=== PATIENT | female | born 1950 | race Caucasian/White ===

== ENCOUNTER → 2018-05-14 14:59 | Outpatient (CLI) | payer OTHER, MEDICARE, SELFPAY ==
--- NOTE | 2018-05-14 | DI.MG.S_ITS ---
BILATERAL DIGITAL SCREENING MAMMOGRAM 3D/2D WITH CAD: 05/14/2018 CLINICAL: Routine screening. Family history of breast cancer. Comparison is made to exams dated: 05/12/2017 mammogram, 04/01/2016 mammogram, and 03/29/2015 mammogram - [facility]. The tissue of both breasts is heterogeneously dense. This may lower the sensitivity of mammography. Current study was also evaluated with a Computer Aided Detection (CAD) system. No significant masses, calcifications, or other findings are seen in either breast. There has been no significant interval change. IMPRESSION: NEGATIVE There is no mammographic evidence of malignancy. A 1 year screening mammogram is recommended. This exam was interpreted at Station ID: [id number]. NOTE: For mammograms, a report in lay terms will be sent to the patient. Approximately 15% of breast malignancies will not be visualized mammographically. In the management of a palpable breast mass, a negative mammogram must not discourage biopsy of a clinically suspicious lesion. Electronically Signed By: Arvin james/fletcher:05/15/2018 13:27:56 letter sent: Normal Exam ACR BI-RADS Category 1: Negative 3341F
== END ==
PROVIDERS: PCP Internal Medicine; Visit Provider Family Medicine
DX: Z12.31 Encounter for screening mammogram for malignant neoplasm of breast (principal); Z80.3 Family history of malignant neoplasm of breast
CPT/HCPCS: 77063; 77067

== ENCOUNTER → 2018-05-15 06:54 | Outpatient (CLI) | payer OTHER, MEDICARE, SELFPAY ==
[2018-05-15 08:05] LABS: Cholesterol 228 mg/dL (140-199); HDL Cholesterol 95 mg/dL (40-60); LDL Cholesterol Calculated 117 mg/dL (<100); Triglycerides 80 mg/dL (35-150)
[2018-05-15 08:38] LABS: Thyroid Stimulating Hormone 0.04 uIU/mL (0.47-4.68)
== END ==
PROVIDERS: PCP Internal Medicine; Visit Provider Internal Medicine
DX: E78.5 Hyperlipidemia, unspecified (principal); E03.9 Hypothyroidism, unspecified
CPT/HCPCS: 36415; 80061; 84443

== ENCOUNTER → 2018-06-03 13:28 | Outpatient (CLI) | payer OTHER, MEDICARE, SELFPAY ==
--- NOTE | 2018-06-03 13:31 | DI.RAD.S_ITS ---
This blank DEXA report has been sent in error by the PACS system. The correct and complete report will be forthcoming in 1-2 days. Thank you for your patience and understanding. Note: The L3 vertebral body is sclerotic, seen also on CT scanning from 06/13/17 and 11/26/17, of uncertain etiology. Bone scan may be warranted to identify any added osseous abnormalities elsewhere. No compression fracture is associated with this finding. Dr. Ware will be called with this finding today. Dictated by: Nino Garcia M.D. on 06/03/2018 at 14:36 Approved by: Nino Garcia M.D. on 06/03/2018 at 14:41
== END ==
PROVIDERS: PCP Family Medicine; Visit Provider Internal Medicine
DX: M85.852 Other specified disorders of bone density and structure, left thigh (principal)
CPT/HCPCS: 77080

== ENCOUNTER → 2018-07-10 07:35 | Outpatient (CLI) | payer OTHER, MEDICARE, SELFPAY ==
--- NOTE | 2018-07-10 07:38 | DI.NM.S_ITS ---
PROCEDURE: NM BONE SCAN WHOLE BODY RADIOPHARMACEUTICAL: 20.5 mCi Tc-99m MDP IV. INDICATIONS: abnormal L3 vertebral body sclerosis TECHNIQUE: Delayed whole-body scintigrams were obtained approximately 3-4 hours after intravenous injection of radiotracer. Anterior and posterior views were acquired from vertex to feet. Additional left and right oblique views of the lumbosacral spine were obtained. COMPARISON: [facility], MR, BRAIN WITHOUT CONTRAST, 08/08/2008, 15:43. [facility], CT, ABDOMEN/PELVIS WITH CONTRAST, 11/26/2017, 13:49. [facility], CT, ABDOMEN/PELVIS WITH CONTRAST, 06/13/2017, 8:50. [facility], CR, L-SPINE 2-3 VIEWS, 06/03/2008, 10:33. [facility], CR, XR DEXA AXIAL SKELETON, 06/03/2018, 14:11. FINDINGS: Planar imaging over the axial and appendicular skeleton shows mild asymmetric increased isotope deposition along the right maxillary sinus region when compared to the left, and degenerative change at each acromioclavicular joint slightly greater on the left than the right. The abnormality is current clinical concern is located at the L3 vertebral body where generalized increased isotope uptake is present, slightly greater on the left than the right, and seen on both the AP and PA image acquisitions. The findings do not cross the intervening disc spaces above and below. More inferiorly there is asymmetric uptake at the hindfoot on the left, degenerative in appearance and position. Isotope uptake and excretion through the urinary tract appears normal and symmetric. IMPRESSION: The L3 vertebra shows generalized increased isotope deposition similar to the appearance noted during DEXA bone density on the study 06/03/18. This information was conveyed to the ordering health care provider at that time, and given the abnormality present on the current examination proceeding to MR of the LS spine without and with contrast is recommended. On review of a distant past 06/03/08 lumbosacral spine plain film series there is a finding of possible vertically oriented striations within the L3 vertebral body, which can be associated with presence of a vertebral body marrow space hemangioma. An atypical hemangioma or localize Paget's disease conceivably could explain the appearance, and trauma is not likely the cause given the absence of vertebral height reduction. Considering differences in technique the vertebral body sclerosis at L3 has not appreciably changed from the CT scan dated 06/13/17 when this abnormality was first identified. However, considering the constellation of findings MR scanning with contrast is definitely recommended, and vertebral body marrow space biopsy may become necessary. Note: These findings were called and discussed with the medical billing coordinator for the ordering health care provider who will convey this information directly to Dr. Bui. Dictated by: Nino Garcia M.D. on 07/10/2018 at 13:15 Approved by: Nino Garcia M.D. on 07/10/2018 at 13:36
== END ==
PROVIDERS: PCP Family Medicine; Visit Provider Internal Medicine
DX: M89.9 Disorder of bone, unspecified (principal)
CPT/HCPCS: 78306; A9503

== ENCOUNTER → 2018-09-21 13:35 | Outpatient (CLI) | payer OTHER, MEDICARE, SELFPAY ==
[2018-09-21 15:32] LABS: BUN Creatinine Ratio 37.1 (6-22); Blood Urea Nitrogen 26 mg/dL (7-17); Estimated Glomerular Filt Rate > 60.0 mL/min (>60)
--- NOTE | 2018-09-21 17:36 | DI.MRI.S_ITS ---
PROCEDURE: MR LUMBAR SPINE WO/W CON INDICATIONS: RADIODENSE BONE LESION TECHNIQUE: Noncontrast sagittal T1 spin echo and T2 fast spin echo, sagittal STIR, axial T1 and T2 fast spin echo through the lumbar spine. In cases with scoliosis, additional coronal T2 fast spin echo may be performed. After the administration of contrast, sagittal and axial T1 spin echo with fat saturation through the lumbar spine. COMPARISON: [facility], CR, L-SPINE 2-3 VIEWS, 06/03/2008, 10:33. [facility], CT, ABDOMEN/PELVIS WITH CONTRAST, 06/13/2017, 8:50. [facility], CT, ABDOMEN/PELVIS WITH CONTRAST, 11/26/2017, 13:49. [facility], NM, NM BONE SCAN WHOLE BODY, 07/10/2018, 10:46. FINDINGS: Image quality: Excellent. Alignment and curvature: There is trace anterolisthesis of L4 on L5. Marrow: Marrow is of normal overall signal. However, is noted at the L3 vertebral body demonstrates decreased T1 and T2 signal. There is no appreciable enhancement. No acute vertebral body compression fractures. There is questionable, minimal enhancement. Spinal cord: Conus medullaris terminates at the L1 level. Visualized spinal cord demonstrates normal signal, without suspicious enhancement. Paraspinous soft tissues: No paravertebral masses. Discs: Moderate desiccation is present at L3-4, L4-5, mild remainder of the lumbar spine. L1-L2: No disc bulge, spinal stenosis or foraminal narrowing. L2-L3: Mild disc bulge with minimal mild spinal stenosis. Minimal epidural lipomatosis. No foraminal narrowing. Minimal to mild facet and ligamentum flavum hypertrophy. L3-L4: Mild disc bulge with mild to moderate spinal stenosis. Minimal epidural lipomatosis is present. There is moderate bilateral foraminal narrowing, left greater than right with facet and ligamentum flavum hypertrophy. L4-L5: Mild disc bulge without spinal stenosis. Minimal to mild bilateral foraminal narrowing with facet and ligamentum flavum hypertrophy. L5-S1: Mild disc bulge including a small right foraminal component. No spinal stenosis. No foraminal narrowing. Mild facet hypertrophy. IMPRESSION: 1. Multilevel degenerative changes as above most notable at L3-4. 2. Decreased marrow signal within the L3 vertebral body on T1 and T2. There is questionable, minimal enhancement. Correlation with prior exams, overall appearance raises suspicion for Paget's disease. Less likely differential would include an infiltrative process such as lymphoma. Dictated by: Rachel Jimenez M.D. on 09/22/2018 at 11:50 Approved by: Rachel Jimenez M.D. on 09/22/2018 at 13:24
== END ==
PROVIDERS: PCP Family Medicine; Visit Provider Orthopaedic Surgery
DX: Z01.818 Encounter for other preprocedural examination (principal); M47.816 Spondylosis without myelopathy or radiculopathy, lumbar region; M89.9 Disorder of bone, unspecified
CPT/HCPCS: 36415; 72158; 82565; 84520; A9579

== ENCOUNTER → 2018-10-15 13:33 | Outpatient (CLI) | payer OTHER, MEDICARE, SELFPAY ==
[2018-10-15 16:38] LABS: Alkaline Phosphatase 95 U/L (38-126)
== END ==
PROVIDERS: Family Provider Family Medicine; PCP Family Medicine; Visit Provider Orthopaedic Surgery
DX: M89.9 Disorder of bone, unspecified (principal)
CPT/HCPCS: 36415; 84075

== ENCOUNTER → 2019-05-27 15:02 | Outpatient (CLI) | payer MEDICARE, OTHER, SELFPAY ==
--- NOTE | 2019-05-27 | DI.MG.S_ITS ---
BILATERAL DIGITAL SCREENING MAMMOGRAM 3D/2D WITH CAD: 05/27/2019 CLINICAL: Routine screening. Family history of breast cancer. Comparison is made to exams dated: 05/14/2018 mammogram, 05/12/2017 mammogram, and 04/01/2016 mammogram - [facility]. The tissue of both breasts is heterogeneously dense. This may lower the sensitivity of mammography. Current study was also evaluated with a Computer Aided Detection (CAD) system. No significant masses, calcifications, or other findings are seen in either breast. There has been no significant interval change. IMPRESSION: NEGATIVE There is no mammographic evidence of malignancy. A 1 year screening mammogram is recommended. This exam was interpreted at Station ID: [id number]. NOTE: For mammograms, a report in lay terms will be sent to the patient. Approximately 15% of breast malignancies will not be visualized mammographically. In the management of a palpable breast mass, a negative mammogram must not discourage biopsy of a clinically suspicious lesion. Electronically Signed By: Tobias restrepo/fletcher:05/27/2019 16:30:22 letter sent: Normal Exam ACR BI-RADS Category 1: Negative 3341F
== END ==
PROVIDERS: Family Provider Family Medicine; PCP Family Medicine; Visit Provider Family Medicine
DX: Z12.31 Encounter for screening mammogram for malignant neoplasm of breast (principal); Z80.3 Family history of malignant neoplasm of breast
CPT/HCPCS: 77063; 77067

== ENCOUNTER → 2019-05-31 07:34 | Outpatient (CLI) | payer MEDICARE, OTHER, SELFPAY ==
[2019-05-31 08:12] LABS: Add Manual Diff / Slide Review NO; Basophils Absolute Auto 100 /uL (0-100); Basophils Percent Auto 1.4 % (0-2); Eosinophils Absolute Auto 200 /uL (0-450); Eosinophils Percent Auto 2.8 % (2-4); Hematocrit 39.2 % (36-46); Hemoglobin 13.4 g/dL (12.0-16.0); Lymphocytes Absolute Auto 2200 /uL (1100-4500); Lymphocytes Percent Auto 33.5 % (25-40); Mean Corpuscular HGB Conc 34.2 % (30-36); Mean Corpuscular Hemoglobin 30.8 PG (26-34); Mean Corpuscular Volume 90.1 fL (80-100); Monocytes Absolute Auto 600 /uL (0-900); Monocytes Percent Auto 8.8 % (3-14); Neutrophils Absolute Auto 3500 /uL (1500-7000); Neutrophils Percent Auto 53.5 % (50-75); Platelet Count 351 X10^3/uL (150-400); Red Blood Cell Count 4.36 X10^6/uL (4.0-5.2); Red Cell Distribution Width 13.6 % (11.6-14.8); White Blood Cell Count 6.5 X10^3/uL (4.5-11.0)
[2019-05-31 08:43] LABS: Alanine Aminotransferase 33 IU/L (9-52); Albumin 4.5 g/dL (3.5-5.0); Albumin Globulin Ratio 1.5 (1.0-2.8); Alkaline Phosphatase 99 U/L (38-126); Aspartate Aminotransferase 23 IU/L (14-36); BUN Creatinine Ratio 31.4 (6-22); Bilirubin Total 0.5 mg/dL (0.2-1.3); Blood Urea Nitrogen 22 mg/dL (7-17); Calcium 9.6 mg/dL (8.4-10.2); Carbon Dioxide 30 mmol/L (22-32); Chloride 102 mmol/L (98-107); Cholesterol 232 mg/dL (140-199); Estimated Glomerular Filt Rate > 60.0 mL/min (>60); Glucose 99 mg/dL (80-110); HDL Cholesterol 92 mg/dL (40-60); HEMOLYSIS < 15 (0-50); LDL Cholesterol Calculated 120 mg/dL (<100); Potassium 4.2 mmol/L (3.4-5.1); Sodium 141 mmol/L (137-145); Total Protein 7.5 g/dL (6.3-8.2); Triglycerides 102 mg/dL (35-150)
[2019-05-31 09:22] LABS: Thyroid Stimulating Hormone 1.01 uIU/mL (0.47-4.68)
== END ==
PROVIDERS: PCP Family Medicine; Visit Provider Family Medicine
DX: E03.9 Hypothyroidism, unspecified (principal); E78.5 Hyperlipidemia, unspecified; I10 Essential (primary) hypertension
CPT/HCPCS: 36415; 80053; 80061; 84443; 85025

== ENCOUNTER → 2019-06-23 06:52 | Outpatient (CLI) | payer MEDICARE, OTHER, SELFPAY ==
--- NOTE | 2019-06-23 06:54 | DI.ECHO.S_ITS ---
[facility]---------+ [facility] +---------+ : : [address] : [place] : : : : [id number] : : : : Phone: [phone]+ Echocardiogram Report + + :Name: TEVIN ALBARRAN Study Date: 06/23/2019 Height: 67 in : :[facility] Exam Location: [place] Weight: 156 lb : : Gender: Female BSA: 1.8 m2 : :: 1950 Age: 69 yrs BP: 142/74 mmHg: :Reason For Study: PVCs : : Performed By: Laci Thompson : :Referring: LE ALMODOVAR : + + Interpretation Summary Normal sinus rhythm with frequent PVC's. Normal LV size, wall thickness, wall motion and LV systolic function. EF is 60-65%. Mild LA enlargement; otherwise normal chamber sizes. No significant valvular abnormalities. No prior study available for comparison. Procedure: A two-dimensional transthoracic echocardiogram with color flow and Doppler was performed. The study quality was technically adequate. There is no prior echocardiogram noted for this patient. The patient was in normal sinus rhythm during the exam. The patient had frequent PVCs during the exam. Left Ventricle: The left ventricle is normal in size. There is normal left ventricular wall thickness. The ejection fraction is estimated to be 60-65%. There are no focal wall motion abnormalities. Right Ventricle: The right ventricle is normal in size and function. Atria: The left atrium is mildly dilated. Right atrial size is normal. The interatrial septum is intact with no evidence for an atrial septal defect. Mitral Valve: The mitral valve is normal in structure and function. There is trace mitral regurgitation. Aortic Valve: The aortic valve is trileaflet. The aortic valve opens well. No aortic regurgitation is present. Tricuspid Valve: The tricuspid valve is normal in structure and function. No tricuspid regurgitation. Pulmonary artery pressures cannot be estimated because of the lack of a measurable TR jet velocity. Pulmonic Valve: The pulmonic valve is normal in structure and function. There is trace pulmonic regurgitation. Great Vessels: The aortic root is normal size. The dimensions of the ascending aorta are normal. The pulmonary artery is normal size. The IVC is of normal diameter and collapses greater than 50% with a sniff. This suggests a low right atrial pressure of 3 mm Hg. Pericardium/ Pleura There is no pericardial effusion. There is no pleural effusion. MMode/2D Measurements & Calculations LVIDd: 4.8 cm LVOT diam: 2.2 cm LVIDs: 3.4 cm Ao root diam: 3.3 cm FS: 28.6 % Aortic Jxn: 2.5 cm EPSS: 0.70 cm asc Aorta Diam: 3.1 cm IVSd: 0.93 cm Ao Arch Diam (Prox Trans): 3.0 cm LVPWd: 1.0 cm LV ruiz. diameter/BSA (cm/m^2): 2.6 LV sys. diameter/BSA (cm/m^2): 1.9 LA dimension: 4.0 cm RA long axis: 5.2 cm LA A2 area: 20.7 cm2 RA area: 14.5 cm2 LA A4 area: 21.9 cm2 RA vol: 34.7 ml LA length (vol): 5.6 cm RA : 19.1 ml/m2 LA vol: 68.8 ml IVC diam: 1.5 cm LA vol index: 37.8 ml/m2 Doppler Measurements & Calculations Ao V2 max: 122.7 cm/sec LVOT Max Hiram: 98.4 cm/sec Ao V2 mean: 89.8 cm/sec LV V1 max P.9 mmHg Ao max P.0 mmHg LV V1 VTI: 25.4 cm Ao mean P.5 mmHg VALERIE(I,D): 3.4 cm2 Ao V2 VTI: 28.5 cm VALERIE(V,D): 3.1 cm2 sev ratio: 0.89 VALERIE indexed to BSA (cm^2/m^2): 1.9 MV E max hiram: 62.6 cm/sec PA V2 max: 83.6 cm/sec MV A max hiram: 55.2 cm/sec PA V2 mean: 65.8 cm/sec MV E/A: 1.1 PA mean P.8 mmHg Med Peak E' Hiram: 2.9 cm/sec PA pr(Accel): 15.8 mmHg E/E' med: 21.6 PA Accel Time: 0.13 sec Lat Peak E' Hiram: 6.3 cm/sec E/E' lat: 9.9 E/e' average: 15.8 MV dec time: 0.20 sec SV(LVOT): 97.4 ml Electronically signed by: Radha Browne M.D. on Reading Physician:06/24/2019 04:48 AM
== END ==
PROVIDERS: PCP Family Medicine; Visit Provider Family Medicine
DX: I49.3 Ventricular premature depolarization (principal)
CPT/HCPCS: 93306

== ENCOUNTER → 2019-06-24 09:23 | Outpatient (CLI) | payer MEDICARE, OTHER, SELFPAY ==
--- NOTE | 2019-07-02 08:28 | P.HOLT.S_ITS ---
Director Environmental Report Referral & Results Date Patient Seen: 06/24/19 Requesting provider: Bogdan Galindo Indication: PVCs Duration of monitoring (days): 3 Diary information: There were 11 patient triggered events and 10 patient diary entries These events were associated with sinus rhythm, PVCs, ventricular bigeminy and ventricular trigeminy Data: Minimum heart rate identified was 42 beats per minute at 01:49 on 06/25/2019 Maximum heart rate was 111 beats per minute at 14:06 on 06/26/2019 Less than 1% of identified beats were supraventricular ectopic in origin Approximately 11% of identified beats were ventricular ectopic in origin including an 18 minutes run of ventricular trigeminy and a 1 minutes 42nd run of ventricular bigeminy There also possibly some episodes of an atrial tachycardia/supraventricular tachycardia longest of which was 13 beats Impression: Significant burden of ventricular ectopic depolarizations including runs of ventricular trigeminy and bigeminy as above. The seem to be symptomatic
== END ==
PROVIDERS: PCP Family Medicine; Visit Provider Family Medicine
DX: I49.3 Ventricular premature depolarization (principal)
CPT/HCPCS: 0296T; 0298T

== ENCOUNTER → 2020-06-06 07:07 | Outpatient (CLI) | payer MEDICARE, OTHER, SELFPAY ==
[2020-06-06 08:41] LABS: Add Manual Diff / Slide Review NO; Basophils Absolute Auto 100 /uL (0-100); Basophils Percent Auto 1.1 % (0-2); Eosinophils Absolute Auto 200 /uL (0-450); Eosinophils Percent Auto 2.7 % (2-4); Hematocrit 41.3 % (36-46); Hemoglobin 13.8 g/dL (12.0-16.0); Lymphocytes Absolute Auto 2200 /uL (1100-4500); Lymphocytes Percent Auto 32.2 % (25-40); Mean Corpuscular HGB Conc 33.3 % (30-36); Mean Corpuscular Hemoglobin 30.4 PG (26-34); Mean Corpuscular Volume 91.2 fL (80-100); Monocytes Absolute Auto 500 /uL (0-900); Monocytes Percent Auto 7.1 % (3-14); Neutrophils Absolute Auto 3900 /uL (1500-7000); Neutrophils Percent Auto 56.9 % (50-75); Platelet Count 305 X10^3/uL (150-400); Red Blood Cell Count 4.53 X10^6/uL (4.0-5.2); Red Cell Distribution Width 13.6 % (11.6-14.8); White Blood Cell Count 6.8 X10^3/uL (4.5-11.0)
[2020-06-06 08:56] LABS: Alanine Aminotransferase 30 IU/L (<35); Albumin 4.6 g/dL (3.5-5.0); Albumin Globulin Ratio 1.5 (1.0-2.8); Alkaline Phosphatase 127 U/L (38-126); Aspartate Aminotransferase 24 IU/L (14-36); BUN Creatinine Ratio 20.3 (6-22); Bilirubin Total 0.5 mg/dL (0.2-1.3); Blood Urea Nitrogen 15 mg/dL (7-17); Calcium 9.7 mg/dL (8.4-10.2); Carbon Dioxide 28 mmol/L (22-32); Chloride 105 mmol/L (98-107); Cholesterol 261 mg/dL (140-199); Estimated Glomerular Filt Rate > 60.0 mL/min (>60); Glucose 107 mg/dL (80-110); HDL Cholesterol 81 mg/dL (40-60); HEMOLYSIS < 15 (0-50); LDL Cholesterol Calculated 143 mg/dL (<100); Potassium 4.7 mmol/L (3.4-5.1); Sodium 140 mmol/L (137-145); Total Protein 7.6 g/dL (6.3-8.2); Triglycerides 185 mg/dL (35-150)
== END ==
PROVIDERS: PCP Family Medicine; Referring Provider Family Medicine; Visit Provider Family Medicine
DX: E03.9 Hypothyroidism, unspecified (principal); E78.5 Hyperlipidemia, unspecified; I10 Essential (primary) hypertension
CPT/HCPCS: 80053; 80061; 84443; 85025

== ENCOUNTER → 2020-06-09 08:03 | Outpatient (CLI) | payer MEDICARE, OTHER, SELFPAY ==
--- NOTE | 2020-06-09 | DI.MG.S_ITS ---
BILATERAL DIGITAL SCREENING MAMMOGRAM 3D/2D WITH CAD: 06/09/2020 CLINICAL: Family history of breast cancer. Comparison is made to exams dated: 05/27/2019 mammogram, 05/14/2018 mammogram, and 05/12/2017 mammogram - [facility]. The tissue of both breasts is heterogeneously dense. This may lower the sensitivity of mammography. Current study was also evaluated with a Computer Aided Detection (CAD) system. No significant masses, calcifications, or other findings are seen in either breast. There has been no significant interval change. IMPRESSION: NEGATIVE There is no mammographic evidence of malignancy. A 1 year screening mammogram is recommended. This exam was interpreted at Station ID: [id number]. NOTE: For mammograms, a report in lay terms will be sent to the patient. Approximately 15% of breast malignancies will not be visualized mammographically. In the management of a palpable breast mass, a negative mammogram must not discourage biopsy of a clinically suspicious lesion. Electronically Signed By: Bogdan Leo M.D., jr/fletcher:06/09/2020 09:37:00 letter sent: Normal Exam ACR BI-RADS Category 1: Negative 3341F
== END ==
PROVIDERS: PCP Family Medicine; Referring Provider Family Medicine; Visit Provider Family Medicine
DX: Z12.31 Encounter for screening mammogram for malignant neoplasm of breast (principal); Z80.3 Family history of malignant neoplasm of breast
CPT/HCPCS: 77063; 77067

== ENCOUNTER → 2020-06-16 07:04 | Outpatient (CLI) | payer MEDICARE, OTHER, SELFPAY ==
--- NOTE | 2020-06-16 07:09 | DI.MRI.S_ITS ---
PROCEDURE: MR CERVICAL SPINE WO CON INDICATIONS: c6 riduclopathy TECHNIQUE: Noncontrast sagittal T1 spin echo and T2 fast spin echo, sagittal STIR, foraminal oblique sagittal T2 fast spin echo, and axial gradient echo or T2 fast spin echo through the cervical spine. COMPARISON: None. FINDINGS: Image quality: Excellent. Alignment and Curvature: There is loss of normal cervical lordosis. There is mild grade 1 retrolisthesis of C3 on C4 and C5 on C6. Mild grade 1 anterolisthesis of C4 on C5. Bone Marrow: Marrow demonstrates normal overall signal. There is mild reactive signal within the endplates adjacent to the C2-C3, C3-C4, C4-C5, C5-C6, and C6-C7 intervertebral discs. Spinal Cord: Visualized spinal cord has normal size and signal. No cerebellar tonsillar herniation. Paraspinous Soft Tissues: No paravertebral masses. Prevertebral soft tissues are normal in thickness. C2-C3: Moderate disc desiccation. Mild diffuse disc bulge. Mild facet and uncovertebral hypertrophy. Mild canal stenosis. Mild bilateral foraminal stenosis. C3-C4: Moderate disc desiccation. Mild diffuse disc bulge. Mild facet and uncovertebral hypertrophy bilaterally. Mild canal stenosis. Mild right greater than left foraminal stenosis. C4-C5: Moderate disc desiccation. Mild diffuse disc bulge. Mild facet and uncovertebral hypertrophy bilaterally. Mild canal stenosis. Mild bilateral foraminal stenosis. C5-C6: Moderate disc height loss and desiccation. Moderate diffuse disc bulge with small superimposed left far lateral protrusion. Moderate facet and uncovertebral hypertrophy bilaterally. There is moderate to severe canal stenosis. Moderate right and severe left foraminal stenosis. Left C6 nerve root compression. C6-C7: Moderate disc height loss and desiccation. Mild diffuse disc bulge. Mild facet and uncovertebral hypertrophy. Mild canal stenosis. Severe bilateral foraminal stenosis. Bilateral C7 nerve root compression. C7-T1: Mild disc desiccation. No significant canal, or foraminal stenosis. IMPRESSION: 1. Multilevel degenerative disc and facet disease, as well as uncovertebral and facet hypertrophy. 2. Multilevel canal stenosis, worst at C5-C6, where there is moderate to severe canal stenosis. 3. Multilevel foraminal stenosis, worst at C5-C6 and C6-C7 where there is associated intraforaminal nerve root compression. Recommend correlation with clinical symptoms to ascertain relevance of this finding. Dictated by: Sheryl Hanson M.D. on 06/16/2020 at 8:33 Approved by: Sheryl Hanson M.D. on 06/16/2020 at 8:58
== END ==
PROVIDERS: PCP Family Medicine; Referring Provider Family Medicine; Visit Provider Family Medicine
DX: M50.11 Cervical disc disorder with radiculopathy, high cervical region (principal); M48.02 Spinal stenosis, cervical region
CPT/HCPCS: 72141

== ENCOUNTER → 2020-07-04 09:56 | Outpatient (CLI) | payer MEDICARE, OTHER, SELFPAY ==
--- NOTE | 2020-07-04 09:58 | DI.RAD.S_ITS ---
PROCEDURE: XR CERVICAL SPINE 4V OR 5V INDICATIONS: Cervical radiculopathy TECHNIQUE: 5 views of the cervical spine acquired. COMPARISON: None. FINDINGS: Bones: No fracture. Multilevel degenerative endplate sclerosis and spurring. Diffuse facet arthropathy. Moderate narrowing of the C5-C6 disc space. On the left, mild to moderate C5-C6 bony foraminal narrowing. On the right, moderate C5-6 disc bony foraminal narrowing. Soft tissues: No prevertebral soft tissue swelling. IMPRESSION: Cervical spondylosis most pronounced at C5-C6 where there is [id number] bilateral foraminal bony stenosis. Diffuse facet arthropathy Dictated by: Nathaniel Werner M.D. on 07/04/2020 at 11:00 Approved by: Nathaniel Werner M.D. on 07/04/2020 at 11:02
== END ==
PROVIDERS: PCP Family Medicine; Referring Provider Family Medicine; Visit Provider Physical Medicine & Rehabilitation
DX: M47.22 Other spondylosis with radiculopathy, cervical region (principal); M48.02 Spinal stenosis, cervical region
CPT/HCPCS: 72050

== ENCOUNTER → 2020-09-18 10:28 | Outpatient (CLI) | payer MEDICARE, OTHER, SELFPAY ==
[2020-09-18 12:22] LABS: COVID19 -Nasal RAPID Negative (Negative)
== END ==
PROVIDERS: PCP Family Medicine; Visit Provider Physical Medicine & Rehabilitation
DX: Z11.59 Encounter for screening for other viral diseases (principal)
CPT/HCPCS: 87635; C9803

== ENCOUNTER 2020-09-19 08:03 | Outpatient (CLI) | payer MEDICARE, OTHER, SELFPAY ==
[2020-09-19] VITALS (8 sets, daily range): BP systolic 125–174; BP diastolic 62–74; PULSE 47–56; RESP 14–22; TEMP 36.1; O2SAT 99–100
--- NOTE | 2020-09-19 08:04 | DI.RAD.S_ITS ---
PROCEDURE: PAIN C/T INTERLAMINAR INJECT INDICATIONS: SPINAL STENOSIS COMPARISON: None. FINDINGS: Fluoroscopic spot filming was performed to verify placement of spinal needles at the C6-C7 posterior midline level, as labeled on the films. Appropriate location(s) of the needle tip(s) was confirmed by injection of iodinated contrast. IMPRESSION: Successful needle tip localization for dorsal C6-C7 interlaminar epidural steroid injection. Dictated by: Nino Garcia M.D. on 09/19/2020 at 10:11 Approved by: Nino Garcia M.D. on 09/19/2020 at 10:11
[2020-09-19] MEDS: fentaNYL 100 MCG/2 ML INJ 50 MCG IV (09:00)
[2020-09-19] MEDS: MIDAZOLAM 5 MG/5 ML VIAL IV (09:00)
--- NOTE | 2020-09-19 09:21 | P.PCN_ITS ---
Date/Time/Diagnoses Date of procedure: 09/19/20 Time of procedure: 09:22 Pre-procedure diagnosis: 1. CERVICAL STENOSIS, 2. CERVICAL HNP WITH UPPER EXTREMITY RADICULAR FEATURES Post-procedure diagnosis: same Procedure Notes Procedure: 1. FLUORSCOPICALLY GUIDED CONTRAST CONTROLLED INTERLAMINAR EPIDURAL STEROID INJECTION - C6/7 TL FIORELLA Indications: Tori is referred by Dr. Galindo for treatment of Cervical HNP with Upper Extremity Paresthesias. Physician: Kamaljit Sandoval Total Fluoroscopy time (seconds): 36 Total sedation minutes: 19 Complications: none Procedure in detail & Post-procedure care: FINDINGS Cervical Stenosis due to disc deterioration and nerve root irritation and nerve root irritation DESCRIPTION OF PROCEDURE Fluoroscopically guided, contrast-controlled C6/7 translaminar epidural steroid injection with conscious sedation. Following review of allergy and review of potential side effects and complications, including, but not necessarily limited to, infection, allergic reaction, local tissue breakdown, temporary as well as permanent nerve injury, stroke, paralysis, and possible , the patient indicated that patient understood and agreed to proceed. An informed consent document was signed by the patient, witnessed by a nurse, and placed in the patient's chart. Additionally, other treatment options including modalities, medications, and physical therapy were reviewed with the patient. After review of previous anaesthesic history and IV conscious sedation the patient was deemed safe to proceed with today?s procedure with IV conscious sedation as ASA class II designation. Safety time-out was performed to confirm patient ID, procedure to be performed and site of procedure. IV sedation was accomplished with a combination of 2mg of Versed and 50mcg of Fentanyl administered by the RN after DO order, titrated to patient comfort during the course of the procedure while the patient remained responsive to all verbal commands. In the prone position, following sterile prep and drape of the cervical region, the C6/7 translaminar space was identified fluoroscopically. The skin was anesthetized via a 25-gauge 1.5-inch needle with 1% lidocaine solution. At this point, a 25-gauge, 2.5-inch short bevel spinal needle was atraumatically introduced and advanced under fluoroscopic guidance into epidural space at the C6/7 translaminar space. Depth was confirmed on lateral view. Radiological data, including multiple fluoroscopic views of the cervical spine, reveal a spinal needle at the C6/7 translaminar space. Lateral views then show placement of the needle in the epidural space. Subsequent views show contrast material flowing superiorly and inferiorly in the epidural space. DSA fluoroscopy with live contrast injection, once again, confirmed no vascular or intrathecal uptake. At this point, using loss of resistance technique with saline and air, the epidural space was entered. Following negative aspiration, injection of appro ximately 1.5 cc of [id number]-200 with live fluoroscopy in the AP view confirmed epidural flow in the epidural space without vascular or intrathecal uptake observed. Subsequently, a test dose of 1 cc of 1% lidocaine solution was injected and patient was observed for two minutes without signs or symptoms of complications, including abdominal pain, shortness of breath, bilateral upper or lower extremity weakness, nausea and vomiting, prior to steroid injection. At this point, 2cc or 20mg of dexamethasone was then injected without incident. The patient tolerated the procedure well without signs or symptoms of complications prior to being transferred to the recovery area for further monitoring, The patient was then transferred to the recovery area where they were observed for an appropriate period of time after the injection. The patient reported a VAS score of 6 prior to the procedure and a post-procedure VAS of 0. POST OP INSTRUCTIONS The patient was provided a Pain Log to continue to record their response to the target-specific procedure prior to follow-up visit with the referring provider. Additionally, specific post-injection care instructions and a contact number to our office were provided if concerns arise regarding possible complications associated with the procedure are suspected.
[2020-09-19] MEDS: IOPAMIDOL 15 ML VIAL 3 ML INJ (09:28)
[2020-09-19] MEDS: BUPIVACAINE 0.25% (PF) VIAL 2 ML INJ (09:28)
[2020-09-19] MEDS: DEXAMETHASONE 10 MG/ML VIAL 30 MG INJ (09:29)
== END 2020-09-19 09:34 | disposition home or self-care (01) ==
LOC: RAD 08:03
PROVIDERS: PCP Family Medicine; Referring Provider Family Medicine; Visit Provider Physical Medicine & Rehabilitation
DX: M48.02 Spinal stenosis, cervical region (principal); M50.123 Cervical disc disorder at C6-C7 level with radiculopathy; R20.2 Paresthesia of skin
CPT/HCPCS: 62321; 99152; 99153; J1100; J2250; J3010

== ENCOUNTER → 2021-01-15 09:12 | Outpatient (CLI) | payer MEDICARE, OTHER, SELFPAY ==
[2021-01-15 10:20] LABS: COVID19 -Nasal RAPID Negative (Negative)
== END ==
PROVIDERS: PCP Family Medicine; Visit Provider Physical Medicine & Rehabilitation
DX: Z20.822 Contact with and (suspected) exposure to COVID-19 (principal)
CPT/HCPCS: 87635; C9803

== ENCOUNTER 2021-01-16 07:24 | Outpatient (CLI) | payer MEDICARE, OTHER, SELFPAY ==
[2021-01-16] VITALS (8 sets, daily range): BP systolic 133–195; BP diastolic 63–92; PULSE 44–56; RESP 14–18; TEMP 36.3; O2SAT 97–98
--- NOTE | 2021-01-16 07:25 | DI.RAD.S_ITS ---
PROCEDURE: PAIN C/T INTERLAMINAR INJECT INDICATIONS: SPINAL STENOSIS COMPARISON: [facility], , PAIN C/T INTERLAMINAR INJECT, 09/19/2020, 9:02. FINDINGS: Fluoroscopic spot filming was performed to verify placement of a spinal needle at the C6-C7 level, as labeled on the films. Appropriate location of the needle tip was confirmed by injection of iodinated contrast. IMPRESSION: No significant intraprocedural abnormality. Dictated by: Angel Holloway M.D. on 01/16/2021 at 11:55 Approved by: Angel Holloway M.D. on 01/16/2021 at 11:55
[2021-01-16] MEDS: fentaNYL 100 MCG/2 ML INJ 50 MCG IV (08:23)
[2021-01-16] MEDS: MIDAZOLAM 5 MG/5 ML VIAL IV (08:27)
[2021-01-16] MEDS: BUPIVACAINE 0.25% (PF) VIAL 2 ML INJ (08:27)
[2021-01-16] MEDS: IOPAMIDOL 15 ML VIAL 3 ML INJ (08:28)
[2021-01-16] MEDS: DEXAMETHASONE 10 MG/ML VIAL 30 MG INJ (08:28)
--- NOTE | 2021-01-16 08:45 | P.PCN_ITS ---
Date/Time/Diagnoses Date of procedure: 01/16/21 Time of procedure: 08:45 Pre-procedure diagnosis: 1. CERVICAL STENOSIS, 2. CERVICAL HNP WITH UPPER EXTREMITY RADICULAR FEATURES Post-procedure diagnosis: same Procedure Notes Procedure: 1. FLUORSCOPICALLY GUIDED CONTRAST CONTROLLED INTERLAMINAR EPIDURAL STEROID INJECTION - C6/7 TL FIORELLA Indications: Tori is referred by Dr. Galindo for treatment of Cervical HNP with Upper Extremity Paresthesias. Physician: Kamaljit Sandoval Total Fluoroscopy time (seconds): 28 Total sedation minutes: 17 Complications: none Procedure in detail & Post-procedure care: FINDINGS Cervical Stenosis due to disc deterioration and nerve root irritation and nerve root irritation DESCRIPTION OF PROCEDURE Fluoroscopically guided, contrast-controlled C6/7 translaminar epidural steroid injection with conscious sedation. Following review of allergy and review of potential side effects and complications, including, but not necessarily limited to, infection, allergic reaction, local tissue breakdown, temporary as well as permanent nerve injury, stroke, paralysis, and possible , the patient indicated that patient understood and agreed to proceed. An informed consent document was signed by the patient, witnessed by a nurse, and placed in the patient's chart. Additionally, other treatment options including modalities, medications, and physical therapy were reviewed with the patient. After review of previous anaesthesic history and IV conscious sedation the patient was deemed safe to proceed with today?s procedure with IV conscious sedation as ASA class II designation. Safety time-out was performed to confirm patient ID, procedure to be performed and site of procedure. IV sedation was accomplished with a combination of 4mg of Versed and 50mcg of Fentanyl administered by the RN after DO order, titrated to patient comfort during the course of the procedure while the patient remained responsive to all verbal commands. In the prone position, following sterile prep and drape of the cervical region, the C6/7 translaminar space was identified fluoroscopically. The skin was anesthetized via a 25-gauge 1.5-inch needle with 1% lidocaine solution. At this point, a 25-gauge, 2.5-inch short bevel spinal needle was atraumatically introduced and advanced under fluoroscopic guidance into epidural space at the C6/7 translaminar space. Depth was confirmed on lateral view. Radiological data, including multiple fluoroscopic views of the cervical spine, reveal a spinal needle at the C6/7 translaminar space. Lateral views then show placement of the needle in the epidural space. Subsequent views show contrast material flowing superiorly and inferiorly in the epidural space. DSA fluoroscopy with live contrast injection, once again, confirmed no vascular or intrathecal uptake. At this point, using loss of resistance technique with saline and air, the epidural space was entered. Following negative aspiration, injection of appro ximately 1.5 cc of Isovue-200 with live fluoroscopy in the AP view confirmed epidural flow in the epidural space without vascular or intrathecal uptake observed. Subsequently, a test dose of 1 cc of 1% lidocaine solution was injected and patient was observed for two minutes without signs or symptoms of complications, including abdominal pain, shortness of breath, bilateral upper or lower extremity weakness, nausea and vomiting, prior to steroid injection. At this point, 3cc or 30mg of dexamethasone was then injected without incident. The patient tolerated the procedure well without signs or symptoms of complications prior to being transferred to the recovery area for further monitoring, The patient was then transferred to the recovery area where they were observed for an appropriate period of time after the injection. The patient reported a VAS score of 6 prior to the procedure and a post-procedure VAS of 0. POST OP INSTRUCTIONS The patient was provided a Pain Log to continue to record their response to the target-specific procedure prior to follow-up visit with the referring provider. Additionally, specific post-injection care instructions and a contact number to our office were provided if concerns arise regarding possible complications associated with the procedure are suspected.
== END 2021-01-16 09:05 | disposition home or self-care (01) ==
LOC: RAD 07:24
PROVIDERS: PCP Family Medicine; Referring Provider Family Medicine; Visit Provider Physical Medicine & Rehabilitation
DX: M48.02 Spinal stenosis, cervical region (principal); M50.123 Cervical disc disorder at C6-C7 level with radiculopathy
CPT/HCPCS: 62321; 99152; J1100; J2250; J3010

== ENCOUNTER → 2021-04-16 10:50 | Outpatient (CLI) | payer MEDICARE, OTHER, SELFPAY ==
[2021-04-16 15:46] LABS: COVID19 -Nasal RAPID Negative (Negative)
== END ==
PROVIDERS: PCP Family Medicine; Referring Provider Physical Medicine & Rehabilitation; Visit Provider Physical Medicine & Rehabilitation
DX: Z20.822 Contact with and (suspected) exposure to COVID-19 (principal)
CPT/HCPCS: 87635; C9803

== ENCOUNTER 2021-04-17 09:32 | Outpatient (CLI) | payer MEDICARE, OTHER, SELFPAY ==
[2021-04-17] VITALS (9 sets, daily range): BP systolic 131–183; BP diastolic 66–87; PULSE 51–64; RESP 15–25; TEMP 36.6; O2SAT 95–99
--- NOTE | 2021-04-17 09:36 | DI.RAD.S_ITS ---
PROCEDURE: PAIN C/T FACET INJ/BLK 1ST L INDICATIONS: SPINAL STENOSIS COMPARISON: [facility], XA, PAIN C/T INTERLAMINAR INJECT, 01/16/2021, 8:28. FINDINGS: Fluoroscopic spot filming was performed to verify placement of spinal needles at the left C4-5, C5-6, and C6-7 facets, as labeled on the films. Appropriate locations of the needle tips confirmed by injection of iodinated contrast. IMPRESSION: No significant intraprocedural abnormality. Dictated by: Edd Guerra M.D. on 04/17/2021 at 16:12 Approved by: Edd Guerra M.D. on 04/17/2021 at 16:17
[2021-04-17] MEDS: fentaNYL 100 MCG/2 ML INJ 50 MCG IV (10:37)
[2021-04-17] MEDS: MIDAZOLAM 5 MG/5 ML VIAL IV (10:42)
[2021-04-17] MEDS: DEXAMETHASONE 10 MG/ML VIAL 30 MG INJ (10:45)
[2021-04-17] MEDS: IOPAMIDOL 15 ML VIAL 3 ML INJ (10:45)
[2021-04-17] MEDS: BUPIVACAINE 0.25% (PF) VIAL 30 ML INJ (10:46)
--- NOTE | 2021-04-17 10:56 | P.PCN_ITS ---
Date/Time/Diagnoses Date of procedure: 04/17/21 Time of procedure: 10:56 Pre-procedure diagnosis: 1. FACET ARTHROPATHY 2. AXIAL NECK PAIN Post-procedure diagnosis: same Procedure Notes Procedure: 1. FLUOROSCOPICALLY GUIDED, CONTRAST-CONTROLLED LEFT C5/6 AND C6/7 FACET JOINT INJECTIONS WITH CONSCIOUS SEDATION. Indications: Tori is referred by Dr. Galindo for treatment of Axial Neck Pain Physician: Kamaljit Sandoval Total Fluoroscopy time (seconds): 17 Total sedation minutes: 13 Complications: none Procedure in detail & Post-procedure care: DESCRIPTION OF PROCEDURE Fluoroscopically guided, contrast-controlled left C4/5, C5/6 and C6/7 facet joint injections with conscious sedation. Following review of allergy and review of potential side effects and complications, including, but not necessarily limited to, infection, allergic reaction, local tissue breakdown, stroke, temporary or permanent nerve injury and paralysis, the patient indicated that the patient understood and agreed to proceed. An informed consent document was signed by the patient, witnessed by a nurse, and placed in the patient's chart. Additionally, other treatment options including medications, modalities, and physical therapy were reviewed with the patient. After review of previous anaesthesic history and IV conscious sedation the patient was deemed safe to proceed with today?s procedure with IV conscious sedation as ASA class II designation. Safety time-out was performed to confirm patient ID, procedure to be performed and site of procedure. IV sedation was accomplished with a combination of 4mg of Versed and 50mcg of Fentanyl was administered by the RN after DO order, titrated to patient comfort during the course of the procedure while the patient remained responsive to all verbal commands In the prone position, following sterile prep and drape of the cervical spine region, the posterior aspect of the left C5/6 and C6/7 facet joints were identified fluoroscopically. The skin was anesthetized via a 25-gauge 1.5-inch needle with 1% lidocaine solution into the corresponding facet joints. At this point, a 25-gauge 2.5-inch spinal needle was atraumatically introduced and advanced under fluoroscopic guidance into the corresponding facet joints. Following negative aspiration, injections of approximately 0.2cc of Isovue 200 confirmed interarticular placement without vascular uptake. At this point, a total of 1cc including 0.5cc or 5mg of dexamethasone combined with 0.5cc of 1% lidocaine solution was injected without complication into each of the corresponding facet joints. The procedure tolerated the procedure well without signs or symptoms of complications prior to transfer to the recovery area continued monitoring without incident. The patient was then transferred to the recovery area where they were observed for an appropriate period of time after the injection. The patient reported a VAS score of 7 prior to the procedure and a post- procedure VAS of 0. POST OP INSTRUCTIONS They were provided a Pain Log to continue to record their response to the target-specific procedure prior to their follow-up visit with their referring physician. Additionally, specific post-injection care instructions and a contact number to our office were provided if concerns arise regarding possible complications associated with the procedure are suspected.
== END 2021-04-17 11:25 | disposition home or self-care (01) ==
LOC: RAD 09:35
PROVIDERS: PCP Family Medicine; Referring Provider Physical Medicine & Rehabilitation; Visit Provider Physical Medicine & Rehabilitation
DX: M47.812 Spondylosis without myelopathy or radiculopathy, cervical region (principal); M54.2 Cervicalgia
CPT/HCPCS: 64490; 64491; 64492; 99152; J1100; J2250; J3010

== ENCOUNTER → 2021-07-04 11:00 | Outpatient (CLI) | payer MEDICARE, OTHER, SELFPAY ==
--- NOTE | 2021-07-04 | DI.MG.S_ITS ---
BILATERAL DIGITAL SCREENING MAMMOGRAM 3D/2D WITH CAD: 07/04/2021 CLINICAL: Routine screening. Family history of breast cancer. Comparison is made to exams dated: 06/09/2020 mammogram, 05/27/2019 mammogram, and 05/14/2018 mammogram - [facility]. The tissue of both breasts is heterogeneously dense. This may lower the sensitivity of mammography. Current study was also evaluated with a Computer Aided Detection (CAD) system. No significant masses, calcifications, or other findings are seen in either breast. There has been no significant interval change. IMPRESSION: NEGATIVE There is no mammographic evidence of malignancy. A 1 year screening mammogram is recommended. This exam was interpreted at Station ID: [id number]. NOTE: For mammograms, a report in lay terms will be sent to the patient. Approximately 15% of breast malignancies will not be visualized mammographically. In the management of a palpable breast mass, a negative mammogram must not discourage biopsy of a clinically suspicious lesion. Electronically Signed By: Bogdan Leo M.D., jr/fletcher:07/04/2021 12:19:37 letter sent: Normal Exam ACR BI-RADS Category 1: Negative [id number]
== END ==
PROVIDERS: PCP Family Medicine; Referring Provider Family Medicine; Visit Provider Family Medicine
DX: Z12.31 Encounter for screening mammogram for malignant neoplasm of breast (principal); Z80.3 Family history of malignant neoplasm of breast
CPT/HCPCS: 77063; 77067

== ENCOUNTER → 2021-08-02 09:33 | Outpatient (CLI) | payer MEDICARE, OTHER, SELFPAY ==
[2021-08-02 10:33] LABS: Add Manual Diff / Slide Review NO; Basophils Absolute Auto 100 /uL (0-100); Basophils Percent Auto 0.9 % (0-2); Eosinophils Absolute Auto 200 /uL (0-450); Eosinophils Percent Auto 2.3 % (2-4); Hematocrit 39.3 % (36-46); Hemoglobin 12.9 g/dL (12.0-16.0); Lymphocytes Absolute Auto 2300 /uL (1100-4500); Lymphocytes Percent Auto 31.6 % (25-40); Mean Corpuscular HGB Conc 32.7 % (30-36); Mean Corpuscular Volume 91.9 fL (80-100); Monocytes Absolute Auto 500 /uL (0-900); Monocytes Percent Auto 7.4 % (3-14); Neutrophils Absolute Auto 4100 /uL (1500-7000); Neutrophils Percent Auto 57.8 % (50-75); Platelet Count 314 X10^3/uL (150-400); Red Blood Cell Count 4.28 X10^6/uL (4.0-5.2); Red Cell Distribution Width 14.1 % (11.6-14.8); White Blood Cell Count 7.1 X10^3/uL (4.5-11.0)
[2021-08-02 11:13] LABS: TSH w/ Reflex to FT4 3.05 uIU/mL (0.47-4.68)
[2021-08-02 11:14] LABS: Alanine Aminotransferase 33 IU/L (<35); Albumin 4.3 g/dL (3.5-5.0); Albumin Globulin Ratio 1.7 (1.0-2.8); Alkaline Phosphatase 113 U/L (38-126); Aspartate Aminotransferase 24 IU/L (14-36); BUN Creatinine Ratio 23.2 (6-22); Bilirubin Total 0.5 mg/dL (0.2-1.3); Blood Urea Nitrogen 16 mg/dL (7-17); Calcium 9.7 mg/dL (8.4-10.2); Carbon Dioxide 28 mmol/L (22-32); Chloride 104 mmol/L (98-107); Cholesterol 239 mg/dL (140-199); Estimated Glomerular Filt Rate > 60.0 mL/min (>60); Globulin 2.6 g/dL (1.7-4.1); Glucose 96 mg/dL (80-110); HDL Cholesterol 92 mg/dL (40-60); HEMOLYSIS < 15 (0-50); LDL Cholesterol Calculated 103 mg/dL (<100); Potassium 4.1 mmol/L (3.4-5.1); Sodium 140 mmol/L (137-145); Total Protein 6.9 g/dL (6.3-8.2); Triglycerides 219 mg/dL (35-150)
== END ==
PROVIDERS: PCP Family Medicine; Referring Provider Family Medicine; Visit Provider Family Medicine
DX: E78.5 Hyperlipidemia, unspecified (principal); E03.9 Hypothyroidism, unspecified; I10 Essential (primary) hypertension
CPT/HCPCS: 36415; 80053; 80061; 84443; 85025